=== PATIENT | male | born 1960 | race Caucasian/White ===

== ENCOUNTER 2019-05-26 07:25 | Observation (INO) ==
--- NOTE | 2019-05-19 15:21 | EKG Report ---
Test Performed on : 05/19/2019 3:07:13 PM Test Reason : PAT Blood Pressure : / mmHG Vent. Rate : 068 BPM Atrial Rate : 068 BPM P-R Int : 162 ms QRS Dur : 106 ms QT Int : 386 ms P-R-T Axes : 067 001 051 degrees QTc Int : 410 ms Sinus rhythm. with marked sinus arrhythmia. Otherwise normal ECG No previous ECGs available Confirmed by Rob Kauffman MD ([id number]) on 05/20/2019 1:00:10 PM
[2019-05-19 15:42] LABS: HEMATOCRIT 41.8 % (42.0-52.0); HEMOGLOBIN 13.4 g/dL (14.0-18.0); MCH 29.3 PG (27-31); MCHC 32.1 g/dL (33-37); MCV 91.3 FL (81-99); MPV 11.2 FL (7.4-10.4); RBC 4.58 XMIL (4.7-6.1); RDW 14.9 % (11.5-14.5); WBC 12.01 X1000 (4.8-10.8)
[2019-05-19 15:58] LABS: CALCIUM 9.4 mg/dL (8.8-10.2); CREATININE 1.5 mg/dL (0.7-1.2); POTASSIUM 4.1 mmol/L (3.5-5.1)
[2019-05-26] MEDS ORDERED: DIPRIVAN 1% ONE (07:41)
[2019-05-26] MEDS ORDERED: XYLOCAINE-MPF 2% ONE (07:41)
[2019-05-26] MEDS ORDERED: ROBINUL ONE (07:41)
[2019-05-26] MEDS ORDERED: QUELICIN (DOSE) ONE (07:41)
[2019-05-26] MEDS ORDERED: LR 1,000 ML ONE (08:15)
[2019-05-26] MEDS ORDERED: ROCEPHIN ONE (08:15)
[2019-05-26] MEDS ORDERED: NS 50 ML ONE (08:16)
[2019-05-26] MEDS ORDERED: ZEMURON ONE ×4 (10:00→12:37)
[2019-05-26] MEDS ORDERED: DECADRON ONE (10:22)
[2019-05-26] MEDS ORDERED: OFIRMEV 1000 MG/ISOTONIC SOLN 1,000 MG/100 ML BOTTLE ONE (10:22)
[2019-05-26] MEDS ORDERED: ZOFRAN ONE (10:22)
[2019-05-26] MEDS ORDERED: VANCOMYCIN 1 GM/NS 1 GM/250 ML IVPB ONE ×2 (10:36→10:43)
[2019-05-26] MEDS ORDERED: TORADOL ONE (10:55)
[2019-05-26] MEDS ORDERED: EPHEDRINE ONE (11:32)
[2019-05-26] MEDS ORDERED: SODIUM CHLORIDE 0.9% 10 ML ONE (11:51)
[2019-05-26] MEDS ORDERED: NEO-SYNEPHRINE ONE (11:51)
[2019-05-26] MEDS ORDERED: BRIDION ONE (12:04)
[2019-05-26] MEDS ORDERED: MORPHINE IV PRN (14:09)
[2019-05-26] MEDS ORDERED: NORCO-7.5 PO PRN (14:15)
[2019-05-26] MEDS ORDERED: ZOFRAN IV PRN (14:15)
[2019-05-26] MEDS ORDERED: LABETALOL IV PRN (14:15)
--- NOTE | 2019-05-26 14:20 | Diag Imaging Result Doc PS360 ---
FLUROSCOPY CYSTO - 05/26/2019 INDICATION: LT. PERC. NEPH, PUT IN PERC. TUBE, REMOVED STONE TECHNIQUE: The exam was performed by the patient's urologist. Three images were obtained. 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 A large bore left nephrostomy tube was placed. A nephroureteral stent was also placed in good position. IMPRESSION: No complication. Electronically signed by Nikolay Pedroza 05/26/2019 2:17 PM
[2019-05-26 14:38] LABS: HEMATOCRIT 38.1 % (42.0-52.0); HEMOGLOBIN 12.2 g/dL (14.0-18.0); MCH 29.7 PG (27-31); MCV 92.7 FL (81-99); MPV 11.1 FL (7.4-10.4); RBC 4.11 XMIL (4.7-6.1); RDW 14.3 % (11.5-14.5); WBC 9.96 X1000 (4.8-10.8)
[2019-05-26] MEDS ORDERED: NORCO-7.5 ONE (14:44)
[2019-05-26] MEDS: DILAUDID ONE ×2 (15:01→15:06)
[2019-05-26 15:10] LABS: CALCIUM 8.6 mg/dL (8.8-10.2); CREATININE 1.3 mg/dL (0.7-1.2); POTASSIUM 5.1 mmol/L (3.5-5.1)
[2019-05-26] MEDS: LR 1,000 ML IV SCH ×2 (21:36→21:37)
[2019-05-26] MEDS: PERIDEX MT SCH (21:37)
[2019-05-26] MEDS: COLACE PO SCH (21:37)
[2019-05-26 23:44] LABS: URINE SOURCE CATH
[2019-05-26 23:56] LABS: BILIRUBIN URINE NEGATIVE (NEGATIVE); BLOOD URINE LARGE (NEGATIVE); COLOR ORANGE; GLUCOSE URINE NEGATIVE (NEGATIVE); KETONE URINE NEGATIVE (NEGATIVE); LEUKOCYTES URINE LARGE (NEGATIVE); NITRITE URINE NEGATIVE (NEGATIVE); PH URINE 5.5; PROTEIN URINE 30 mg/dL (NEGATIVE); SP GRAVITY URINE 1.021; TURBIDITY URINE TURBID (CLEAR); UR EPITHELIAL CELLS <10 /HPF (<10); URINE RBC TNTC /HPF (<10); URINE WBC TNTC /HPF (<10); UROBILINOGEN URINE NORMAL (NORMAL)
[2019-05-26 23:57] LABS: URINE BACTERIA NEGATIVE /HPF
[2019-05-27 00:17] LABS: URINE CASTS NONE SEEN; URINE CRYSTALS NONE SEEN; URINE SMALL ROUND CELLS NONE SEEN; URINE YEAST NONE SEEN
[2019-05-27 06:03] LABS: HEMATOCRIT 35.4 % (42.0-52.0); HEMOGLOBIN 11.4 g/dL (14.0-18.0); MCH 29.8 PG (27-31); MCHC 32.2 g/dL (33-37); MCV 92.4 FL (81-99); MPV 11.9 FL (7.4-10.4); RBC 3.83 XMIL (4.7-6.1); RDW 14.2 % (11.5-14.5); WBC 12.4 X1000 (4.8-10.8)
[2019-05-27 06:48] LABS: AGAP 9; BUN 25 mg/dL (8-22); CALCIUM 7.6 mg/dL (8.8-10.2); CHLORIDE 109 mmol/L (98-107); COSMO 291; CREATININE 1.1 mg/dL (0.7-1.2); ESTIMATED GFR > 60; GLUCOSE 169 mg/dL (70-104); POTASSIUM 4.8 mmol/L (3.5-5.1); SODIUM 142 mmol/L (136-145); TCO2 24 mmol/L (25-35)
[2019-05-27] MEDS: LR 1,000 ML IV SCH (06:55)
[2019-05-27] MEDS ORDERED: LOVENOX SUBQ SCH (08:00)
--- NOTE | 2019-05-27 08:19 | PROGRESS NOTE ---
DATE: 05/27/2019 SUBJECTIVE: Postop day 1 from cystoscopy with direct vision internal urethrotomy, left percutaneous nephrostolithotomy with removal of stones greater than 2.5 cm. The patient had some pain yesterday, but this seems to be better today. He denies any nausea or vomiting. His nephrostomy tube has been draining well. The patient has a urethral catheter in draining clear yellow urine. He denies any flank or abdominal pain. He tolerated good p.o. intake yesterday. The patient remains afebrile with stable vital signs. OBJECTIVE: Vital Signs: Temperature 97.9 degrees, heart rate 52, blood pressure 118/67, and oxygen saturation 97%. General: No acute distress. Resting comfortably in bed. Alert and oriented x3. Respiratory: Good respiratory effort without audible wheezing or rales. Abdomen: Soft, nontender, and nondistended. : Urethral catheter in place draining clear yellow urine. No evidence of any clots. No drainage around the catheter. The patient has a nephrostomy tube in place with a Mcneill catheter. Incision site looks healthy and normal. Sutures are in place. The nephrostomy tube is draining clear yellow urine. A small amount of drainage around the catheters themselves. Extremities: Lower extremities with no evidence of lower extremity edema. LABORATORY: White blood cell count 12.4, hemoglobin 11.4, hematocrit 35.4, and platelets 180,000. Sodium 142, potassium 4.8, chloride 109, carbon dioxide 24, BUN 25, creatinine 1.1, and glucose of 169. ASSESSMENT/PLAN: Mr. Rodriguez is a 58-year-old who underwent a cystoscopy, direct vision internal urethrotomy, and left percutaneous nephrostolithotomy yesterday. The patient tolerated the procedure well. The patient has minimal pain today. We will encourage him to be ambulatory. We will give him a dose of Lovenox today. Continue pain medications and antibiotics. Continue catheter to drainage. We will keep indwelling urethral catheter in for at least a week. The patient will need second-look percutaneous nephrostolithotomy due to retained stone. We will give the patient a bowel regimen, and continue home medications. If the patient does well today, would consider discharge later this morning. cc: MD NENA Lynn
[2019-05-27] MEDS ORDERED: FLOMAX PO SCH (09:00)
[2019-05-27] MEDS ORDERED: NORVASC PO SCH (09:00)
[2019-05-27] MEDS ORDERED: ROCEPHIN 1 GM in NS 50 ML IV SCH (10:00)
[2019-05-27] MEDS: COLACE PO SCH (10:04)
[2019-05-27] MEDS: PERIDEX MT SCH (10:04)
[2019-05-27 11:46] VITALS: BP 120/56
--- NOTE | 2019-05-28 11:28 | OPERATIVE NOTE ---
PROCEDURE DATE : 05/26/2019 PREOPERATIVE DIAGNOSIS: 1. Bulbar urethral stricture 2. Microscopic hematuria. 3. Left renal stones. POSTOPERATIVE DIAGNOSIS: 1. Bulbar urethral stricture 2. Microscopic hematuria. 3. Left renal stones. PROCEDURE PERFORMED: 1. Cystoscopy with direct internal vision urethrotomy. 2. Left retrograde ureteral stent placement. 3. Percutaneous renal access. 4. Tract dilation. 5. Left percutaneous nephrostolithotomy for stones greater than 2.5 cm. 6. Antegrade nephrostogram. 7. Antegrade nephrostomy tube placement. SURGEON: Lazaro Carrillo MD. CERTIFIED PHLEBOTOMY TECHNICIAN: None. DRAINS: 1. 18-Djiboutian urethral catheter. 2. 12-Djiboutian nephrostomy tube. 3. Berenstein catheter. BLOOD LOSS: 100 mL. ANESTHESIA: General. COMPLICATIONS: None. SPECIMENS REMOVED: Left renal stones. HISTORY OF PRESENT ILLNESS: Mr. Rodriguez is a 58-year-old with history of nephrolithiasis, who presented as a consult regarding microscopic hematuria. The patient underwent CT scan, which showed a large staghorn stone within the left kidney, and the patient had undergone attempted cystoscopy in the office. The patient had a narrow bulbar urethral stricture, was not accommodating to the cystourethroscope. I had a discussion regarding surgical management of his stones due to the size and I recommended percutaneous access and removal of stones as well as cystoscopy and direct vision internal urethrotomy. Discussed the risks of the procedure including urinary incontinence, damage to sphincter mechanism, worsening hematuria, need for secondary procedures, damage to surrounding structures including the bladder, colon, ureter, and spleen. After further discussion, the patient elected to proceed. DESCRIPTION OF PROCEDURE: After informed consent was obtained, the patient was brought to the operating room and placed on the operating table in supine position. The patient received preoperative antibiotics and received endotracheal intubation. The patient was then placed into a dorsal lithotomy position and was prepped and draped in the usual sterile fashion. A preoperative time-out was performed with all parties in agreement including Anesthesia, Surgical, and Nursing staff. At which point, I tried to insert a 21-Djiboutian cystourethroscopy, which advanced through a normal-appearing anterior urethra until the bulbar urethra was encountered. It was a pin-like hole. Ultimately passed a wire through this hole and this was coiled within the bladder. The scope was removed and direct vision internal urethrotomy was then advanced and using a knife this was excised at the 6 and12 o'clock positions. This allowed for good opening of the tissue. I was able to advance the urethrotome all the way into the bladder with ease. Incision was carried for approximately 2 cm anterior and posterior on the urethra to ensure good opening of the stricture. The urethrotome was completely removed and the cystourethroscope was readvanced and the entirety of the bladder was inspected with a 30 and 70 degree lens with no obvious papillary lesions, diverticulum, or cellules. The prostate was small with no evidence of obstruction. Following complete evaluation, both ureteral orifices were visualized with efflux of clear yellow urine. I advanced an open-ended catheter through the left ureteral orifice and up into the kidney. This was left in place and using silk ties this was attached to the catheter, and then an 18-Djiboutian catheter was inserted with ease into the bladder over the wire with return of clear irrigant, was inflated 10 mL of sterile water and placed to gravity drainage. Both the externalized catheter and the urethral catheter were attached to one another with the silk ties. The patient was then transferred back to the stretcher and placed into a prone position. All pressure points were adequately padded, and the patient was attached to the bed with Velcro straps and Silk tape. Once this was completed, the patient was adequately prepped and draped. Next, retrograde pyelogram was performed, which showed a large stone within the left kidney, this appeared to be concentrated in the lower interpolar regions. A lower pole ureteral renal calyx was selected and was accessed. I was able to use a needle into the calyx itself and passed a Sensor wire into the renal pelvis. A second wire was then placed once the tract was dilated up to 10 [place]ian and using the coaxial sheath the second wire was placed with ease. At which point, the tract was then dilated with a NephroMax balloon and this allowed for easy placement of the sheath. A rigid nephroscope was then obtained and passed into the renal pelvis at which point a large amount of stone was visualized and using the Differential system was able to fracture the stone into multiple pieces, which extracted a large volume. Once all the smaller pieces were obtained. The larger stone was then seen just anterior to us and this was positioned into the pelvis to allow for adequate fracturing. There was slight torquing of the scope due to the location of the stone and required manipulation of the stone to a better location. The stone was fragmented but quite hard. It took multiple uses of the device to ultimately fracture the stone into small enough pieces. Several of the small stones were then extracted with Perc NCircle. Once this was completed, approximately 3 hours of breaking of the stone was undertaken at which time approximately 80% of the stone was removed. Decision was made to abort this at this portion of the procedure due to some bleeding and torquing of the scope. The ureteropelvic junction was visualized and a wire was passed down it into the bladder itself. The mucosa of the renal pelvis appeared to be healthy. Slowly removed the nephroscope and the sheath with no significant active bleeding. Using the PTFE wire, the Berenstein catheter was then passed down into the bladder itself and seen fluoroscopically to be in the bladder. Using the Sensor wire, a 12-Djiboutian nephrostomy tube was then passed into the kidney and seen to coil within the renal pelvis. An antegrade nephrostomy was shot, which showed some contrast extravasation from the tube tract. Nephrostomy tube was then coiled in appropriate position and then sutured to the skin with a 2-0 silk. A sterile dressing was then applied and the open-ended ureteral catheter from the bladder was removed. The patient was then placed back on the stretcher, extubated, and was taken to recovery in satisfactory condition. DISPOSITION: The patient will be admitted to the hospital overnight with nephrostomy tube and be scheduled for second-look procedure to extract the rest of the stones. cc: MD NENA Lynn
== END 2019-05-27 15:23 | disposition home or self-care (01) ==
LOC: PAT 07:25 → OPS 07:25 → 4N 07:25
PROVIDERS: ADMIT Urology; ATTEND Urology
PROC: [UNRECOGNIZED PROCEDURE] (2019-05-26 10:20)